=== PATIENT | female | born 1940 | race Caucasian/White ===

== ENCOUNTER 2018-05-05 17:52 | Emergency (ER) | payer MEDICAID ==
[~2018-05-05] VITALS: Ht 165.1 cm; Wt 59.0 kg
[~2018-05-05 17:52] MED LIST: Ginkgo Biloba PO; [UNRECOGNIZED DRUG - OTHER] PO
--- NOTE | 2018-05-05 19:27 | NUR ---
Pt brought in by family members with c/o right upper extremity pain that started 1.5 months ago. 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 Here for evaluation.
--- NOTE | 2018-05-05 20:55 | NUR ---
Patient discharged to home in stable conditon. Written and verbal after care instructions given. Patient verbalizes understanding of instructions. Pt ambulated out of ER in steady gait with family members. All belongings with pt. VSS. NAD noted.
[2018-05-05 20:56] VITALS: BP 134/69
== END 2018-05-05 20:57 | disposition home or self-care (01) ==
LOC: ER 17:54
DX: M19.011 Primary osteoarthritis, right shoulder (principal); Z90.49 Acquired absence of other specified parts of digestive tract
CPT/HCPCS: 73030; A4663

== ENCOUNTER 2021-04-23 19:48 | Inpatient (IN) | payer MEDICARE, OTHER ==
[~2021-04-23] VITALS: Ht 165.1 cm; Wt 63.5 kg
[~2021-04-23 19:48] MED LIST changes: +LEVOTHYROXINE
--- NOTE | 2021-04-23 20:05 | NUR ---
PT AMBULATED TO ER WITH STEADY GAIT C/O BONNER WITH NECK PAIN X 8 DAYS. A/O X3, NO SOB OR LABORED BREATHING, AFEBRILE. DENIES CP/PRESSURE. NO N/V/D. CLEAR SPEECH, COMPLETE SENTENCES, ABLE TO MOVE ALL EXTREMITIES WITHOUT DEFICIT, SMILE EQUAL, HAND RETAIL COVERAGE MERCHANDISER EQUAL.
--- NOTE | 2021-04-23 20:06 | NUR ---
PT YBARRA AT BEDSIDE, MSE IN PROGRESS.
[2021-04-23] MEDS ORDERED: IV NORMAL SALINE 1000 ML BAG IV ONE (20:15)
[2021-04-23] MEDS ORDERED: diphenhydrAMINE 50 MG/1 ML VIAL IV ONE (20:15)
[2021-04-23] MEDS ORDERED: METOCLOPRAMIDE HCL 10 MG/2 ML VIAL IV ONE (20:15)
[2021-04-23] MEDS ORDERED: ACETAMINOPHEN ES 500 MG TABLET PO ONE (20:15)
--- NOTE | 2021-04-23 20:40 | NUR ---
XRAY AT BEDSIDE.
[2021-04-23 20:43] LABS: HEMATOCRIT 32.8 % (31.2-41.9); MEAN CORPUSCULAR HEMOGLOBIN 32.4 uug (24.7-32.8); MEAN CORPUSCULAR VOLUME 94.3 fL (75.5-95.3); PLATELET COUNT (AUTO) 195 K/uL (179-408)
[2021-04-23] MEDS ORDERED: METOCLOPRAMIDE HCL 10 MG/2 ML VIAL ONE (20:43)
[2021-04-23] MEDS ORDERED: diphenhydrAMINE 50 MG/1 ML VIAL ONE (20:43)
[2021-04-23] MEDS ORDERED: ACETAMINOPHEN ES 500 MG TABLET ONE (20:43)
[2021-04-23 20:49] LABS: POTASSIUM 3.9 mmol/L (3.5-5.1)
[2021-04-23 20:53] LABS: BILIRUBIN,DIRECT 0.1 mg/dL (0.0-0.2); BILIRUBIN,TOTAL 0.6 mg/dL (0.2-1.0); MAGNESIUM 2.1 mg/dL (1.8-2.4); PHOSPHOROUS 3.9 mg/dL (2.5-4.9); TOTAL PROTEIN, SERUM 7.7 g/dL (6.4-8.2)
[2021-04-23] MEDS ORDERED: SWABABLE VALVE TRANSFER SET EA MC ONE (21:16)
[2021-04-23] MEDS ORDERED: IV NORMAL SALINE 250 ML IV ONE (21:17)
[2021-04-23] MEDS ORDERED: IOHEXOL 350 100 ML INFUS..BTL ONE (21:17)
[2021-04-23] MEDS ORDERED: predniSONE 20 MG TABLET PO ONE (22:30)
--- NOTE | 2021-04-23 22:53 | NUR ---
Patient is resting comfortably in bed with eyes closed. Noted to be using her phone.
[2021-04-23] MEDS ORDERED: predniSONE 20 MG TABLET ONE (22:54)
[2021-04-23] MEDS ORDERED: Z GUARD REMEDY PASTE 57 GM TUBE TOP PRN (23:45)
[2021-04-23] MEDS ORDERED: ONDANSETRON 4 MG/2 ML VIAL IV PRN (23:45)
[2021-04-23] MEDS ORDERED: MORPHINE SULFATE 2 MG/1 ML DISP.SYRIN IV PRN (23:45)
[2021-04-23] MEDS ORDERED: MAGNESIUM HYDROXIDE 30 ML LIQUID UDC PO PRN (23:45)
--- NOTE | 2021-04-24 01:42 | NUR ---
PT NOTED TO BE SLEEPING, BREATHING EVEN AND UNLABORED.
--- NOTE | 2021-04-24 03:39 | NUR ---
PT AMBULATED TO RESTROOM, DENIES AY PAIN/DISCOMFORT AT THIS TIME.
--- NOTE | 2021-04-24 05:23 | NUR ---
Patient is resting comfortably in bed with eyes closed.
--- NOTE | 2021-04-24 06:23 | NUR ---
pt ambulated to restroom, steady gait.
[2021-04-24 07:33] LABS: HEMATOCRIT 35.4 % (31.2-41.9); MEAN CORPUSCULAR HEMOGLOBIN 33.6 uug (24.7-32.8); MEAN CORPUSCULAR VOLUME 96.3 fL (75.5-95.3); PLATELET COUNT (AUTO) 209 K/uL (179-408)
[2021-04-24 08:07] LABS: CREATININE 0.9 mg/dL (0.6-1.3); MAGNESIUM 2.2 mg/dL (1.8-2.4); PHOSPHOROUS 3.6 mg/dL (2.5-4.9); POTASSIUM 3.7 mmol/L (3.5-5.1)
--- NOTE | 2021-04-24 08:18 | NUR ---
Transfered to 3rd floor via gurny with no distress noted.
--- NOTE | 2021-04-24 08:30 | NUR ---
Received patient from the ER , patient is alert and oriented x 4, denies of any pain, in room air saturating at 95%, patient is [place] speaking, IV site on the right AC G22. Seen by doctor Baer and ordered for Biopsy of the temporal artery on Tuesday , endorsed to the next shift. All needs met promptly. Call light within reach.
[2021-04-24] MEDS ORDERED: IBUPROFEN 800 MG TABLET PO PRN (12:45)
[2021-04-24] MEDS: IV 1/2NS 1000 ML 1,000 ML IV PRN (13:22)
[2021-04-24 16:20] VITALS: BP 93/55
[2021-04-24] MEDS: predniSONE 50 MG TABLET PO SCH (16:53)
[2021-04-24 20:51] VITALS: BP 119/66
[2021-04-25] MEDS: IV 1/2NS 1000 ML 1,000 ML IV PRN ×2 (01:50→14:57)
[2021-04-25 04:53] VITALS: BP 110/64
--- NOTE | 2021-04-25 06:45 | NUR ---
Patient asleep in bed. Easily arousable. Slept well throughout the night. Denies any pain or discomfort. Ivf infusing well. All needs attended. Will continue to monitor and assess.
[2021-04-25] MEDS: predniSONE 50 MG TABLET PO SCH (08:05)
[2021-04-25 11:13] VITALS: BP 127/81
[2021-04-25] MEDS: ACETAMINOPHEN 325 MG TABLET PO PRN (12:31)
[2021-04-25 15:05] VITALS: BP 125/61
[2021-04-25 20:50] VITALS: BP 115/57
[2021-04-26 04:00] VITALS: BP 114/56
[2021-04-26] MEDS: IV 1/2NS 1000 ML 1,000 ML IV PRN ×2 (05:41→20:19)
[2021-04-26] MEDS: predniSONE 50 MG TABLET PO SCH (08:08)
[2021-04-26 08:25] LABS: HEMATOCRIT 33.4 % (31.2-41.9); MEAN CORPUSCULAR HEMOGLOBIN 33.6 uug (24.7-32.8); MEAN CORPUSCULAR VOLUME 93.7 fL (75.5-95.3); PLATELET COUNT (AUTO) 216 K/uL (179-408)
[2021-04-26 08:34] VITALS: BP 104/58
[2021-04-26 08:46] LABS: CREATININE 0.8 mg/dL (0.6-1.3); POTASSIUM 3.5 mmol/L (3.5-5.1)
[2021-04-26 11:54] VITALS: BP 106/62
[2021-04-26 15:41] VITALS: BP 137/77
--- NOTE | 2021-04-26 18:21 | NUR ---
Patient resting in bed. AOx4. On room air. No signs of acute distress. IV access patent and intact, running 1/2NS at 75cc. Patient denies pain/ discomfort. Patient denies SOB/ . Needs anticipated and met. Frequent patient rounding for safety. Call light within reach. Will endorse to incoming shift for continuity of care.
--- NOTE | 2021-04-26 19:30 | NUR ---
RECEIVED PT AWAKE, ALERT AND ORIENTED X 4. PT IN NO ACUTE DISTRESS. IV INTACT. SAFETY AND COMFORT PROVIDED. WILL CONTINUE TO MONITOR.
[2021-04-26 20:00] VITALS: BP 128/80
[2021-04-26] MEDS: ACETAMINOPHEN 325 MG TABLET PO PRN (20:17)
--- NOTE | 2021-04-26 20:17 | NUR ---
PT GIVEN TYLENOL PRN 650 MG PRN AT 2017H PER PT REQUEST. TP STABLE.
[2021-04-27 04:00] VITALS: BP 114/60
--- NOTE | 2021-04-27 05:46 | NUR ---
PT SLEPT INTERMITTENTLY. PT IN NO ACUTE DISTRESS. PRESCRIBED MEDICATION GIVEN AND PT TOLERATED IT WELL. PT IV INTACT.SAFETY AND COMFORT PROVIDED. ALL NEEDS ARE MET. WILL ENDORSE TO INCOMING NURSE FOR CONTINUITY OF CARE.
[2021-04-27] MEDS ORDERED: IV NS 1000 ML 1,000 ML IV ONE (07:00)
--- NOTE | 2021-04-27 08:58 | NUR ---
alert and responsive no acute distress noted. no s/sx of pain or discomfort noted. iv hydration ongoing. bed at lowest alarm on siderails up x2. call light in reach.
[2021-04-27] MEDS: predniSONE 50 MG TABLET PO SCH (09:00)
--- NOTE | 2021-04-27 09:49 | NUR ---
spoke with gary at surgery pt will be p/u 4pm for 4:30 pm surgery. continue npo until further ordered.
[2021-04-27 11:24] VITALS: BP 132/74
--- NOTE | 2021-04-27 12:16 | NUR ---
received call from surgery, pt will be p/u 1:45. pt and andie perez made aware.
--- NOTE | 2021-04-27 14:03 | NUR ---
picked up by 2 RN for procedure. family went with the patient.
[2021-04-27] MEDS ORDERED: LIDOCAINE 1%-EPI 1:100,000 20 ML VIAL ONE (14:20)
[2021-04-27] MEDS ORDERED: FENTANYL CITRATE 100 MCG/2 ML AMPUL ONE (14:26)
[2021-04-27] MEDS ORDERED: PROPOFOL 200 MG/20 ML BOTTLE IV ONE (16:21)
[2021-04-27] MEDS ORDERED: CEFAZOLIN 1 G VIAL IM ONE (16:21)
[2021-04-27] MEDS ORDERED: LIDOCAINE-MPF 2% 5 ML VIAL IJ ONE (16:21)
--- NOTE | 2021-04-27 17:00 | NUR ---
came back from surgery awake alert oriented x4. accompanied by family. no respiratory distress. bilateral temporal surgical site with dermabond per CHRISTIAN Corbett no dressing needed leave open to air. no redness, swelling or drainage noted. pt denies pain. vs 115/60 hr 68 t98.2 [id number] spo2 96% on room air. all orders are noted. dr archibald made aware with order that may start cardiac diet noted and carried. will cont to monitor.
--- NOTE | 2021-04-27 19:00 | NUR ---
RECD PT IN BED, ALERT AND ORIENTED,NO ACUTE DISTRESS NOTED,FAMILY AT BEDSIDE. NEEDS ATTENDED TO,[place]ISIONSON TEMPORAL REGIONS LEFT OPEN TO AIR,.NO SIGNS OF BLEEDING NOTED.
[2021-04-27] MEDS ORDERED: IV 1/2NS 1000 ML 1,000 ML IV PRN (20:00)
[2021-04-27 20:03] VITALS: BP 125/61
--- NOTE | 2021-04-27 20:40 | NUR ---
COMPLAINED OF HEADACHE 02/03, MEDICATED WITH MORPHINE SULFATE 2 MG ORDERED VIA IV, WITH GOOD RELIEF. RESTED FAIRLY WELL.
--- NOTE | 2021-04-28 02:24 | NUR ---
UP TO BR , VOIDED FREELY WELL. KEPT DRY AND CLEAN. .
[2021-04-28 04:52] VITALS: BP 105/55
--- NOTE | 2021-04-28 06:42 | NUR ---
HAD AQUIET NOC,UNEVENTFUL NITE.ENDORSED TO AM SHIFT.
[2021-04-28 07:29] LABS: HEMATOCRIT 35.5 % (31.2-41.9); MEAN CORPUSCULAR VOLUME 94.5 fL (75.5-95.3); PLATELET COUNT (AUTO) 251 K/uL (179-408)
[2021-04-28 07:43] LABS: CREATININE 0.7 mg/dL (0.6-1.3); POTASSIUM 3.5 mmol/L (3.5-5.1)
[2021-04-28] MEDS: predniSONE 50 MG TABLET PO SCH (08:10)
--- NOTE | 2021-04-28 10:00 | NUR ---
received awake in bed. no acute distress. assisted to the bathroom. no dizziness. s/p bilateral temporal biopsy. no bleeding/drainage or swelling noted or surgical sites. bed at lowest and locked. siderails up x2. comfortable. call light in reach.
[2021-04-28 10:05] LABS: THYROID STIMULATING HORMONE 3.817 mIU/mL (0.358-3.740)
[2021-04-28 11:27] VITALS: BP 103/58
[2021-04-28 15:19] VITALS: BP 113/57
[2021-04-28] MEDS ORDERED: PRED20TA PO (17:54)
[2021-04-28] MEDS ORDERED: ESOM20CA PO (17:54)
--- NOTE | 2021-04-28 18:44 | NUR ---
discharged to home. no acute distress. follow up instructions relayed to patient and her son lillie to f/up with pcp and neuro and to cont medications as ordered. they both verbalized understanding. bilateral temporal incisions intact no s/sx of infection or drainage. denies pain. pt left via private car accompanied by son in stable condition.
== END 2021-04-28 18:50 | disposition home or self-care (01) | DRG 42 ==
LOC: ER 19:50 → MEDSURG3 04-24 08:06
PROVIDERS: ADMIT Internal Medicine; ATTEND Internal Medicine
PROC: 03BT0ZX Excision of Left Temporal Artery, Open Approach, Diagnostic (ICD-10-PCS; principal; 2021-04-27)
PROC: 03BS0ZX Excision of Right Temporal Artery, Open Approach, Diagnostic (ICD-10-PCS; 2021-04-27)
DX: G43.909 Migraine, unspecified, not intractable, without status migrainosus (principal); M31.6 Other giant cell arteritis; E78.5 Hyperlipidemia, unspecified; E89.0 Postprocedural hypothyroidism; I73.9 Peripheral vascular disease, unspecified; Z20.822 Contact with and (suspected) exposure to COVID-19; R73.03 Prediabetes
CPT/HCPCS: 36415; 70030-TC; 70496; 71046; 83735; 84100; 84443; 85025; 85651; 85730; 86140; 88313-TC; 93005; 97161; A4217; A4663; A9150; G0378; J0690; J1200; J2270; J2765; J3010; J3490; J7030; J7050; J7512; Q9967

== ENCOUNTER 2021-11-24 12:10 | Emergency (ER) | payer MEDICARE, OTHER ==
[~2021-11-24] VITALS: Ht 165.1 cm; Wt 63.5 kg
[~2021-11-24 12:10] MED LIST changes: +ESOM20CA PO; +PRED20TA PO
[2021-11-24] MEDS ORDERED: KETOROLAC TROMETHAMINE 15 MG INJ ONE (12:29)
[2021-11-24] MEDS ORDERED: ACETAMINOPHEN 325 MG TABLET ONE (12:29)
[2021-11-24] MEDS ORDERED: ACETAMINOPHEN 325 MG TABLET PO ONE (12:30)
[2021-11-24] MEDS ORDERED: KETOROLAC TROMETHAMINE 15 MG INJ IVP ONE (12:30)
[2021-11-24] MEDS ORDERED: IV NORMAL SALINE 1000 ML BAG IV ONE (12:30)
[2021-11-24 12:41] LABS: *BILIRUBIN,URIN NEGATIVE (NEGATIVE); *BLOOD, URINE 2+ (NEGATIVE); *CLARITY,URINE SLIGHTLY CLOUDY (CLEAR); *COLOR,URINE YELLOW (YELLOW); *KETONES,URINE NEGATIVE (NEGATIVE); *UROBILINOGEN,URINE 0.2 E.U./dl (NORMAL); LEUKOCYTE ESTERASE ,URINE 2+ (NEGATIVE); NITRITE, URINE POSITIVE (NEGATIVE); UGLUCOSE NEGATIVE (NEGATIVE)
[2021-11-24 12:42] LABS: HEMATOCRIT 37.9 % (31.2-41.9); MEAN CORPUSCULAR HEMOGLOBIN 32.2 uug (24.7-32.8); MEAN CORPUSCULAR VOLUME 93.2 fL (75.5-95.3); PLATELET COUNT (AUTO) 216 K/uL (179-408)
[2021-11-24 12:53] LABS: BILIRUBIN,DIRECT 0.2 mg/dL (0.0-0.2); CREATININE 0.7 mg/dL (0.6-1.3); POTASSIUM 3.7 mmol/L (3.5-5.1); TOTAL PROTEIN, SERUM 7.6 g/dL (6.4-8.2)
[2021-11-24] MEDS ORDERED: CEFTRIAXONE 1 G in IV DEXTROSE 5% 50 ML IV ONE (13:15)
[2021-11-24] MEDS ORDERED: NAPR-1009 PO (13:17)
[2021-11-24] MEDS ORDERED: CEPH500C2 PO (13:17)
[2021-11-24] MEDS ORDERED: CEFTRIAXONE /D5W 50ML IVPB **ER PYXIS IV ONE (13:17)
--- NOTE | 2021-11-24 13:33 | NUR ---
Patient discharged to home in stable condition. Written and verbal after care instructions given. Patient verbalizes understanding of instructions. Stressed follow up or return to ER for worsening s/s
[2021-11-24 13:35] VITALS: BP 119/71
[2021-11-24 16:14] LABS: BACTERIA,URINE MANY /HPF (NONE SEEN); SQUAMOUS EPITHELIAL CELL,UR FEW /HPF (NONE SEEN); WBC,URINE 20-50 /HPF (0-3)
== END 2021-11-24 13:40 | disposition home or self-care (01) ==
LOC: ER 12:10
DX: M54.50 Low back pain, unspecified (principal); N39.0 Urinary tract infection, site not specified; N28.1 Cyst of kidney, acquired; K57.90 Diverticulosis of intestine, part unspecified, without perforation or abscess without bleeding; R31.9 Hematuria, unspecified; Z90.49 Acquired absence of other specified parts of digestive tract; E03.9 Hypothyroidism, unspecified; E78.5 Hyperlipidemia, unspecified; M17.11 Unilateral primary osteoarthritis, right knee
CPT/HCPCS: 36415; 74176; 80048; 80076; 81001; 83690; 85025; 87086; 96361; 96365; 96375; 99284; J0696; J1885; J7040; 87077; A4663

== ENCOUNTER 2024-04-05 21:50 | Emergency (ER) | payer MEDICARE, OTHER ==
[~2024-04-05] VITALS: Ht 157.5 cm; Wt 62.6 kg
[~2024-04-05 21:50] MED LIST changes: +CEPH500C2 PO; +NAPR-1009 PO
[2024-04-05 22:17] VITALS: O2SAT 98
[2024-04-06] MEDS ORDERED: HYDROCODONE/APAP 5-325MG TABLET ONE (01:07)
[2024-04-06] MEDS: HYDROCODONE/APAP 5-325MG TABLET PO ONE (01:15)
[2024-04-06] MEDS ORDERED: MELO-107 PO (01:15)
== END 2024-04-06 01:30 | disposition home or self-care (01) ==
LOC: ER 21:54
DX: M54.16 Radiculopathy, lumbar region (principal); E03.9 Hypothyroidism, unspecified; E78.5 Hyperlipidemia, unspecified; M19.90 Unspecified osteoarthritis, unspecified site; Z79.52 Long term (current) use of systemic steroids; Z79.1 Long term (current) use of non-steroidal anti-inflammatories (NSAID); Z90.49 Acquired absence of other specified parts of digestive tract; Z98.890 Other specified postprocedural states
CPT/HCPCS: 72170; 73502; A4606; A4663

== ENCOUNTER 2024-05-15 15:39 | Inpatient (IN) | payer MEDICARE, OTHER ==
[~2024-05-15] VITALS: Ht 154.9 cm; Wt 59.0 kg
[~2024-05-15 15:39] MED LIST changes: +MELO-107 PO
[2024-05-15 16:02] LABS: BASOPHILS % (AUTO) 0.3 % (0.0-2.0); HEMATOCRIT 38.5 % (31.2-41.9); HEMOGLOBIN 12.8 g/dL (10.9-14.3); LYMPHOCYTES # (AUTO) 1.4 K/uL (0.8-4.8); LYMPHOCYTES % (AUTO) 10.9 % (20.5-51.5); MEAN CORPUSCULAR HEMOGLOBIN 31.3 uug (24.7-32.8); MEAN CORPUSCULAR HGB CONC 33 g/dL (32.3-35.6); MEAN CORPUSCULAR VOLUME 93.8 fL (75.5-95.3); MONOCYTES # (AUTO) 0.9 K/uL (0.1-1.30); MONOCYTES % (AUTO) 6.8 % (0.0-11.0); NEUTROPHILS # (AUTO) 10.5 K/uL (1.8-8.9); PLATELET COUNT (AUTO) 193 K/uL (179-408); RED CELL DISTRIBUTION WIDTH 13.4 % (12.3-17.7); WHITE BLOOD COUNT (AUTO) 12.9 K/uL (3.8-11.8)
[2024-05-15 16:12] LABS: DIFFERENTIAL COMMENT 1
[2024-05-15 16:16] LABS: CALCIUM 8.7 mg/dL (8.5-10.1); CARBON DIOXIDE 25 mmol/L (21-32); CHLORIDE 97 mmol/L (98-107); GLUCOSE 132 mg/dL (74-106); POTASSIUM 3.7 mmol/L (3.5-5.1); SODIUM SERUM 134 mmol/L (136-145); UREA NITROGEN, BLOOD 14 mg/dL (7-18)
[2024-05-15 16:22] LABS: ALANINE AMINOTRANSFERASE 25 U/L (14-59); ALBUMIN 3.3 g/dL (3.4-5.0); ALKALINE PHOSPHATASE 70 U/L (50-136); ASPARTATE AMINOTRANSFERASE 30 U/L (15-37); BILIRUBIN,DIRECT 0.3 mg/dL (0.0-0.2); BILIRUBIN,TOTAL 1.4 mg/dL (0.2-1.0); LIPASE 19 U/L (16-77); TOTAL PROTEIN, SERUM 8.1 g/dL (6.4-8.2)
[2024-05-15] MEDS ORDERED: CEFTRIAXONE /D5W 50ML IVPB **ER PYXIS IV ONE (17:09)
[2024-05-15] MEDS: IV NORMAL SALINE 1000 ML BAG IV ONE (17:09)
[2024-05-15] MEDS: CEFTRIAXONE 1 G in IV DEXTROSE 5% 50 ML IV ONE (17:10)
[2024-05-15 17:11] LABS: *BILIRUBIN,URIN NEGATIVE (NEGATIVE); *BLOOD, URINE 3+ (NEGATIVE); *CLARITY,URINE CLEAR (CLEAR); *COLOR,URINE YELLOW (YELLOW); *KETONES,URINE 2+ (NEGATIVE); *PROTEIN,URINE 2+ (NEGATIVE); *UROBILINOGEN,URINE 0.2 E.U./dl (NORMAL); LEUKOCYTE ESTERASE ,URINE 3+ (NEGATIVE); NITRITE, URINE NEGATIVE (NEGATIVE); UGLUCOSE NEGATIVE (NEGATIVE)
[2024-05-15] MEDS: ENOXAPARIN SODIUM 60 MG/0.6 ML DISP.SYRIN SQ ONE (18:01)
[2024-05-15] MEDS: ASPIRIN 81 MG TAB.CHEW PO ONE (18:01)
[2024-05-15] MEDS ORDERED: HYDROCODONE/APAP 5-325MG TABLET PO PRN (19:45)
[2024-05-15] MEDS ORDERED: ONDANSETRON 4 MG/2 ML VIAL IV PRN (19:45)
[2024-05-15] MEDS ORDERED: MAGNESIUM HYDROXIDE 30 ML LIQUID UDC PO PRN (19:45)
[2024-05-15] MEDS ORDERED: TEMAZEPAM 7.5 MG CAPSULE PO PRN (20:15)
[2024-05-15 21:20] VITALS: BP 119/57; TEMP 98.5; O2SAT 95
[2024-05-15] MEDS: ATORVASTATIN 40 MG TABLET PO SCH (22:02)
[2024-05-15] MEDS ORDERED: MEROPENEM 1GM/NS 100ML IVPB **ER PYXIS ONLY IV ONE (22:14)
[2024-05-15] MEDS ORDERED: IV 1/2 NS + KCL 20 MEQ BAG 1,000 ML ONE (22:25)
[2024-05-15] MEDS: MEROPENEM 1 G in IV NORMAL SALINE 100 ML IV SCH (23:52)
[2024-05-16] VITALS: BP 126/56; TEMP 99.5; O2SAT 94
[2024-05-16] MEDS: POTASSIUM CHLORIDE 20 MEQ in IV 1/2NS 1000 ML 1,000 ML IV PRN
[2024-05-16 04:00] VITALS: BP 114/55; TEMP 98.5; O2SAT 94
[2024-05-16] MEDS: PANTOPRAZOLE SODIUM 40 MG TABLET.DR PO SCH (06:33)
[2024-05-16 07:41] VITALS: BP 117/58; TEMP 99.5; O2SAT 94
[2024-05-16 07:50] LABS: BASOPHILS # (AUTO) 0.1 K/UL (0.0-0.2); BASOPHILS % (AUTO) 0.8 % (0.0-2.0); EOSINOPHILS % (AUTO) 0.1 % (0.0-7.0); HEMATOCRIT 31.1 % (31.2-41.9); HEMOGLOBIN 10.9 g/dL (10.9-14.3); LYMPHOCYTES # (AUTO) 1.7 K/uL (0.8-4.8); MEAN CORPUSCULAR HEMOGLOBIN 32.8 uug (24.7-32.8); MEAN CORPUSCULAR HGB CONC 35 g/dL (32.3-35.6); MEAN CORPUSCULAR VOLUME 93.6 fL (75.5-95.3); MONOCYTES # (AUTO) 0.9 K/uL (0.1-1.30); MONOCYTES % (AUTO) 9.9 % (0.0-11.0); NEUTROPHILS # (AUTO) 6.7 K/uL (1.8-8.9); NEUTROPHILS % (AUTO) 71.2 % (38.5-71.5); PLATELET COUNT (AUTO) 150 K/uL (179-408); RED BLOOD CELL COUNT(AUTO) 3.32 MIL/uL (3.63-4.92); RED CELL DISTRIBUTION WIDTH 13.1 % (12.3-17.7); WHITE BLOOD COUNT (AUTO) 9.4 K/uL (3.8-11.8)
[2024-05-16 07:59] LABS: DIFFERENTIAL COMMENT 1
[2024-05-16 08:26] LABS: ALANINE AMINOTRANSFERASE 19 U/L (14-59); ALBUMIN 2.4 g/dL (3.4-5.0); ALKALINE PHOSPHATASE 59 U/L (50-136); ASPARTATE AMINOTRANSFERASE 26 U/L (15-37); BILIRUBIN,TOTAL 1.2 mg/dL (0.2-1.0); CALCIUM 7.5 mg/dL (8.5-10.1); CARBON DIOXIDE 23 mmol/L (21-32); CHLORIDE 103 mmol/L (98-107); CHOLESTEROL 106 mg/dL (<200); CREATININE 0.9 mg/dL (0.6-1.3); GLUCOSE 104 mg/dL (74-106); HDL CHOLESTEROL 43 mg/dL (40-60); MAGNESIUM 1.9 mg/dL (1.8-2.4); PHOSPHOROUS 2.4 mg/dL (2.5-4.9); POTASSIUM 3.3 mmol/L (3.5-5.1); SODIUM SERUM 134 mmol/L (136-145); TOTAL PROTEIN, SERUM 6.3 g/dL (6.4-8.2); TRIGLYCERIDES 58 MG/DL (30-150); UREA NITROGEN, BLOOD 10 mg/dL (7-18)
[2024-05-16] MEDS: ASPIRIN EC 81 MG TABLET.DR PO SCH (08:52)
[2024-05-16] MEDS: ENOXAPARIN SODIUM 60 MG/0.6 ML DISP.SYRIN SQ SCH (08:53)
[2024-05-16] MEDS: ACETAMINOPHEN 325 MG TABLET PO PRN (08:56)
[2024-05-16 09:16] LABS: THYROID STIMULATING HORMONE 1.332 mIU/mL (0.358-3.740)
[2024-05-16] MEDS: POTASSIUM CHLORIDE 20 MEQ POWDER PACKET PO ONE (09:34)
[2024-05-16] MEDS ORDERED: ASPI81TA31 PO (09:59)
[2024-05-16 11:47] VITALS: BP 107/67; TEMP 98.4; O2SAT 94
[2024-05-16] MEDS: NEUTRA PHOS PACKET PO ONE (16:29)
[2024-05-16 16:36] VITALS: BP 129/65; TEMP 97.6; O2SAT 94
[2024-05-16] MEDS: MEROPENEM 1 G in IV NORMAL SALINE 100 ML IV SCH (17:03)
[2024-05-16 19:40] VITALS: BP 134/66; TEMP 101.1; O2SAT 93
[2024-05-16] MEDS ORDERED: CEFTRIAXONE /D5W 50ML IVPB **ER PYXIS IV ONE (21:30)
[2024-05-16] MEDS: CEFTRIAXONE 1 G in IV DEXTROSE 5% 50 ML IV SCH (22:17)
[2024-05-17 00:02] VITALS: BP 111/65; TEMP 98.2; O2SAT 96
[2024-05-17 04:22] VITALS: BP 120/74; TEMP 97.4; O2SAT 93
[2024-05-17 06:49] LABS: CALCIUM 8.2 mg/dL (8.5-10.1); CARBON DIOXIDE 27 mmol/L (21-32); CHLORIDE 106 mmol/L (98-107); CREATININE 0.8 mg/dL (0.6-1.3); GLUCOSE 108 mg/dL (74-106); PHOSPHOROUS 2.8 mg/dL (2.5-4.9); POTASSIUM 4.1 mmol/L (3.5-5.1); SODIUM SERUM 139 mmol/L (136-145); UREA NITROGEN, BLOOD 6 mg/dL (7-18)
[2024-05-17 07:42] VITALS: BP 136/64; TEMP 98.6; O2SAT 94
[2024-05-17 11:56] VITALS: BP 133/71; TEMP 97.9; O2SAT 95
[2024-05-17 15:43] VITALS: BP 137/75; TEMP 98.5; O2SAT 97
[2024-05-17 20:08] VITALS: BP 118/70; TEMP 98.3; O2SAT 92
[2024-05-18 05:35] VITALS: BP 134/76; TEMP 98.2; O2SAT 95
[2024-05-18 07:39] LABS: BASOPHILS % (AUTO) 1.1 % (0.0-2.0); EOSINOPHILS # (AUTO) 0.1 K/uL (0.0-0.7); EOSINOPHILS % (AUTO) 2.7 % (0.0-7.0); HEMATOCRIT 33.3 % (31.2-41.9); HEMOGLOBIN 11.6 g/dL (10.9-14.3); LYMPHOCYTES # (AUTO) 1.9 K/uL (0.8-4.8); LYMPHOCYTES % (AUTO) 41.3 % (20.5-51.5); MEAN CORPUSCULAR HEMOGLOBIN 32.1 uug (24.7-32.8); MEAN CORPUSCULAR HGB CONC 35 g/dL (32.3-35.6); MEAN CORPUSCULAR VOLUME 92.4 fL (75.5-95.3); MONOCYTES # (AUTO) 0.6 K/uL (0.1-1.30); MONOCYTES % (AUTO) 13.2 % (0.0-11.0); NEUTROPHILS # (AUTO) 1.9 K/uL (1.8-8.9); NEUTROPHILS % (AUTO) 41.7 % (38.5-71.5); PLATELET COUNT (AUTO) 173 K/uL (179-408); RED CELL DISTRIBUTION WIDTH 12.8 % (12.3-17.7); WHITE BLOOD COUNT (AUTO) 4.5 K/uL (3.8-11.8)
[2024-05-18 08:00] VITALS: BP 137/78; TEMP 98.4; O2SAT 93
[2024-05-18 08:01] LABS: ALANINE AMINOTRANSFERASE 24 U/L (14-59); ALBUMIN 2.4 g/dL (3.4-5.0); ALKALINE PHOSPHATASE 60 U/L (50-136); ASPARTATE AMINOTRANSFERASE 21 U/L (15-37); BILIRUBIN,TOTAL 0.3 mg/dL (0.2-1.0); CALCIUM 8.2 mg/dL (8.5-10.1); CARBON DIOXIDE 28 mmol/L (21-32); CHLORIDE 104 mmol/L (98-107); CREATININE 0.7 mg/dL (0.6-1.3); GLUCOSE 102 mg/dL (74-106); MAGNESIUM 1.9 mg/dL (1.8-2.4); PHOSPHOROUS 3.4 mg/dL (2.5-4.9); POTASSIUM 3.7 mmol/L (3.5-5.1); SODIUM SERUM 136 mmol/L (136-145); TOTAL PROTEIN, SERUM 6.5 g/dL (6.4-8.2); UREA NITROGEN, BLOOD 5 mg/dL (7-18)
[2024-05-18 08:12] LABS: DIFFERENTIAL COMMENT 1
[2024-05-18 12:00] VITALS: BP 125/68; TEMP 98.1; O2SAT 95
[2024-05-18 16:00] VITALS: BP 123/69; TEMP 98; O2SAT 98
[2024-05-18] MEDS: ENSURE ENLIVE (VAN) 240 ML LIQUID PO SCH (17:30)
[2024-05-18 19:59] VITALS: BP 157/79; TEMP 98.7; O2SAT 94
[2024-05-19 04:41] VITALS: BP 115/73; TEMP 97.8; O2SAT 95
[2024-05-19 06:10] VITALS: BP 115/73; TEMP 97.8; O2SAT 95
[2024-05-19 11:34] VITALS: BP 112/62; TEMP 97.9; O2SAT 95
[2024-05-19] MEDS ORDERED: SULF1TAB48 PO (14:08)
[2024-05-19] MEDS ORDERED: ATOR10TA PO (14:08)
== END 2024-05-19 16:00 | disposition home or self-care (01) | DRG 871 ==
LOC: ER 15:39 → TELE3 20:18 → MEDSURG3 05-17 11:00
PROVIDERS: ADMIT Internal Medicine; ATTEND Internal Medicine
DX: A41.51 Sepsis due to Escherichia coli [E. coli] (principal); G92.8 Other toxic encephalopathy; I21.A1 Myocardial infarction type 2; J18.9 Pneumonia, unspecified organism; N39.0 Urinary tract infection, site not specified; I70.0 Atherosclerosis of aorta; E78.5 Hyperlipidemia, unspecified; E03.9 Hypothyroidism, unspecified; G43.909 Migraine, unspecified, not intractable, without status migrainosus; R42 Dizziness and giddiness; M15.9 Polyosteoarthritis, unspecified; E80.6 Other disorders of bilirubin metabolism; R73.03 Prediabetes; Z79.82 Long term (current) use of aspirin; E88.09 Other disorders of plasma-protein metabolism, not elsewhere classified; R65.20 Severe sepsis without septic shock
CPT/HCPCS: 36415; 71045; 83605; 83690; 83735; 84100; 84443; 84484; 85025; 85730; 87040; 87077; 93307; A4663; G0378; J0696; J1650; J2185; J3480; J3490; J7040

== ENCOUNTER 2024-10-08 20:42 | Emergency (ER) | payer MEDICARE, OTHER ==
[~2024-10-08] VITALS: Ht 165.1 cm; Wt 61.7 kg
[~2024-10-08 20:42] MED LIST changes: +ASPI81TA31 PO; +ATOR10TA PO; -CEPH500C2 PO; -ESOM20CA PO; -Ginkgo Biloba PO; -LEVOTHYROXINE; -MELO-107 PO; -NAPR-1009 PO; -PRED20TA PO; +SULF1TAB48 PO; -[UNRECOGNIZED DRUG - OTHER] PO
[2024-10-09 00:07] LABS: *BILIRUBIN,URIN NEGATIVE (NEGATIVE); *BLOOD, URINE 2+ (NEGATIVE); *CLARITY,URINE CLEAR (CLEAR); *KETONES,URINE NEGATIVE (NEGATIVE); *PROTEIN,URINE NEGATIVE (NEGATIVE); *UROBILINOGEN,URINE 0.2 E.U./dl (NORMAL); LEUKOCYTE ESTERASE ,URINE NEGATIVE (NEGATIVE); NITRITE, URINE NEGATIVE (NEGATIVE); UGLUCOSE NEGATIVE (NEGATIVE)
[2024-10-09 00:11] LABS: *COLOR,URINE LIGHT YELLOW (YELLOW)
[2024-10-09 00:20] LABS: BASOPHILS # (AUTO) 0.1 K/UL (0.0-0.2); BASOPHILS % (AUTO) 2.2 % (0.0-2.0); EOSINOPHILS # (AUTO) 0.3 K/uL (0.0-0.7); EOSINOPHILS % (AUTO) 5.6 % (0.0-7.0); HEMATOCRIT 34.8 % (31.2-41.9); LYMPHOCYTES % (AUTO) 49.2 % (20.5-51.5); MEAN CORPUSCULAR HEMOGLOBIN 32.5 uug (24.7-32.8); MEAN CORPUSCULAR HGB CONC 35 g/dL (32.3-35.6); MEAN CORPUSCULAR VOLUME 93.9 fL (75.5-95.3); MONOCYTES # (AUTO) 0.9 K/uL (0.1-1.30); MONOCYTES % (AUTO) 15.6 % (0.0-11.0); NEUTROPHILS # (AUTO) 1.6 K/uL (1.8-8.9); NEUTROPHILS % (AUTO) 27.4 % (38.5-71.5); PLATELET COUNT (AUTO) 191 K/uL (179-408); RED CELL DISTRIBUTION WIDTH 13.3 % (12.3-17.7)
[2024-10-09 00:21] LABS: DIFFERENTIAL COMMENT 1
[2024-10-09 00:47] LABS: CALCIUM 8.3 mg/dL (8.5-10.1); CARBON DIOXIDE 28 mmol/L (21-32); CHLORIDE 102 mmol/L (98-107); GLUCOSE 101 mg/dL (74-106); POTASSIUM 3.9 mmol/L (3.5-5.1); SODIUM SERUM 137 mmol/L (136-145); UREA NITROGEN, BLOOD 14 mg/dL (7-18)
[2024-10-09 00:59] LABS: ALANINE AMINOTRANSFERASE 21 U/L (14-59); ALBUMIN 3.4 g/dL (3.4-5.0); ALKALINE PHOSPHATASE 52 U/L (50-136); ASPARTATE AMINOTRANSFERASE 23 U/L (15-37); BILIRUBIN,DIRECT 0.1 mg/dL (0.0-0.2); BILIRUBIN,TOTAL 0.5 mg/dL (0.2-1.0); LIPASE 31 U/L (16-77); TOTAL PROTEIN, SERUM 7.6 g/dL (6.4-8.2)
[2024-10-09 01:01] LABS: BACTERIA,URINE FEW /HPF (NONE SEEN); SQUAMOUS EPITHELIAL CELL,UR FEW /HPF (NONE SEEN); WBC,URINE 0-3 /HPF (0-3)
[2024-10-09 01:53] LABS: EOSINOPHILS % (MANUAL) 2 % (0-8); LYMPHOCYTES % (MANUAL) 54 % (20-40); MONOCYTES % (MANUAL) 13 % (2-10); NEUTROPHILS % (MANUAL) 31 % (42-75); PLATELET ESTIMATE ADEQUATE
[2024-10-09] MEDS ORDERED: METOCLOPRAMIDE HCL 10 MG/2 ML VIAL ONE (02:36)
[2024-10-09] MEDS ORDERED: SUCR1ORA4 PO (02:37)
[2024-10-09] MEDS ORDERED: KETOROLAC TROMETHAMINE 15 MG INJ ONE (02:37)
[2024-10-09] MEDS ORDERED: FAMO40TA7 PO (02:37)
[2024-10-09] MEDS: METOCLOPRAMIDE HCL 10 MG/2 ML VIAL IV ONE (02:53)
[2024-10-09] MEDS: KETOROLAC TROMETHAMINE 15 MG INJ IVP ONE (02:53)
[2024-10-09 02:55] VITALS: BP 130/70; TEMP 98.1; O2SAT 99
== END 2024-10-09 02:56 | disposition home or self-care (01) ==
LOC: ER 20:47
DX: R10.32 Left lower quadrant pain (principal); R10.31 Right lower quadrant pain; E03.9 Hypothyroidism, unspecified; E78.5 Hyperlipidemia, unspecified; M19.90 Unspecified osteoarthritis, unspecified site; Z79.82 Long term (current) use of aspirin; Z87.440 Personal history of urinary (tract) infections; Z90.49 Acquired absence of other specified parts of digestive tract; Z90.710 Acquired absence of both cervix and uterus; Z98.890 Other specified postprocedural states
CPT/HCPCS: 36415; 71045; 83690; 84484; 85025; 85651; 85730; 87086; A4606; A4663; J1885; J2765

== ENCOUNTER 2025-04-26 20:39 | Emergency (ER) | payer MEDICARE, OTHER ==
[~2025-04-26] VITALS: Ht 160 cm; Wt 61.7 kg
[2025-04-26 20:39] VITALS: BP 137/79
[~2025-04-26 20:39] MED LIST changes: +FAMO40TA7 PO; +SUCR1ORA4 PO
[2025-04-26 21:41] LABS: PLATELET COUNT (AUTO) 200 K/uL (179-408); RED BLOOD CELL COUNT(AUTO) 3.97 MIL/uL (3.63-4.92); RED CELL DISTRIBUTION WIDTH 13.5 % (12.3-17.7); WHITE BLOOD COUNT (AUTO) 5.2 K/uL (3.8-11.8)
[2025-04-26 21:43] LABS: CREATININE 0.8 mg/dL (0.6-1.3); SODIUM SERUM 138 mmol/L (136-145); UREA NITROGEN, BLOOD 10 mg/dL (7-18)
[2025-04-26 21:48] LABS: ASPARTATE AMINOTRANSFERASE 20 U/L (15-37); TOTAL PROTEIN, SERUM 7.9 g/dL (6.4-8.2)
[2025-04-26] MEDS ORDERED: ACETAMINOPHEN 500 MG TABLET ONE (22:07)
[2025-04-26] MEDS: IV NORMAL SALINE 500 ML BAG IV ONE (22:15)
[2025-04-26] MEDS: ACETAMINOPHEN 500 MG TABLET PO ONE (22:15)
[2025-04-26 22:28] LABS: *BILIRUBIN,URIN NEGATIVE (NEGATIVE); *BLOOD, URINE 2+ (NEGATIVE); *COLOR,URINE YELLOW (YELLOW); *KETONES,URINE NEGATIVE (NEGATIVE); *PROTEIN,URINE NEGATIVE (NEGATIVE); *UROBILINOGEN,URINE 0.2 E.U./dl (NORMAL); LEUKOCYTE ESTERASE ,URINE 1+ (NEGATIVE); NITRITE, URINE NEGATIVE (NEGATIVE); UGLUCOSE NEGATIVE (NEGATIVE)
[2025-04-26 22:29] LABS: *CLARITY,URINE HAZY (CLEAR)
[2025-04-26 23:02] LABS: SQUAMOUS EPITHELIAL CELL,UR FEW /HPF (NONE SEEN)
[2025-04-26] MEDS ORDERED: CEFTRIAXONE /D5W 50ML IVPB **ER PYXIS IV ONE (23:13)
[2025-04-26] MEDS: CEFTRIAXONE 500 MG VIAL IV ONE (23:16)
[2025-04-26] MEDS ORDERED: CEFD300C3 PO (23:30)
[2025-04-27 02:18] VITALS: BP 130/72; O2SAT 98
== END 2025-04-27 01:08 | disposition home or self-care (01) ==
LOC: ER 20:39
DX: N39.0 Urinary tract infection, site not specified (principal); I51.9 Heart disease, unspecified; E78.5 Hyperlipidemia, unspecified; K21.9 Gastro-esophageal reflux disease without esophagitis; M19.90 Unspecified osteoarthritis, unspecified site; Z79.82 Long term (current) use of aspirin; Z87.440 Personal history of urinary (tract) infections; Z88.7 Allergy status to serum and vaccine; Z90.49 Acquired absence of other specified parts of digestive tract; Z98.890 Other specified postprocedural states; Z79.899 Other long term (current) drug therapy; Z86.2 Personal history of diseases of the blood and blood-forming organs and certain disorders involving the immune mechanism
CPT/HCPCS: 99284; 96365; 87804 ×2; 80076; 80048; 81001; 85025; 84145; 85730; 87086; 36415; 93005; 83605; J0696; J7040 ×2; A4606; A4663; A9150

== ENCOUNTER 2025-05-16 10:15 | Emergency (ER) | payer MEDICARE, OTHER ==
[~2025-05-16] VITALS: Ht 152.4 cm; Wt 61.7 kg
[~2025-05-16 10:15] MED LIST changes: +CEFD300C3 PO
[2025-05-16] MEDS ORDERED: ASPIRIN 81 MG TAB.CHEW ONE (11:19)
[2025-05-16] MEDS: ASPIRIN 81 MG TAB.CHEW PO ONE (11:23)
[2025-05-16 11:27] LABS: PLATELET COUNT (AUTO) 206 K/uL (179-408); RED BLOOD CELL COUNT(AUTO) 4.08 MIL/uL (3.63-4.92); RED CELL DISTRIBUTION WIDTH 13.4 % (12.3-17.7); WHITE BLOOD COUNT (AUTO) 5.4 K/uL (3.8-11.8)
[2025-05-16 11:34] LABS: *BILIRUBIN,URIN NEGATIVE (NEGATIVE); *BLOOD, URINE 2+ (NEGATIVE); *CLARITY,URINE SLIGHTLY CLOUDY (CLEAR); *COLOR,URINE YELLOW (YELLOW); *KETONES,URINE NEGATIVE (NEGATIVE); *PROTEIN,URINE NEGATIVE (NEGATIVE); *UROBILINOGEN,URINE 0.2 E.U./dl (NORMAL); LEUKOCYTE ESTERASE ,URINE 2+ (NEGATIVE); NITRITE, URINE POSITIVE (NEGATIVE); UGLUCOSE NEGATIVE (NEGATIVE)
[2025-05-16 11:36] LABS: CREATININE 0.7 mg/dL (0.6-1.3); SODIUM SERUM 138 mmol/L (136-145); UREA NITROGEN, BLOOD 11 mg/dL (7-18)
[2025-05-16 12:01] LABS: SQUAMOUS EPITHELIAL CELL,UR FEW /HPF (NONE SEEN)
[2025-05-16] MEDS ORDERED: CEFTRIAXONE /D5W 50ML IVPB **ER PYXIS IV ONE (12:22)
[2025-05-16] MEDS ORDERED: GENTAMICIN SULFATE 20 MG/2 ML VIAL IV ONE (12:46)
[2025-05-16] MEDS: GENTAMICIN SULFATE 20 MG/2 ML VIAL IV ONE (13:01)
[2025-05-16] MEDS ORDERED: CEFD300C3 PO (13:25)
[2025-05-16 13:32] VITALS: BP 149/77
[2025-05-16 14:00] VITALS: BP 149/77; TEMP 97.9; O2SAT 98
== END 2025-05-16 14:01 | disposition home or self-care (01) ==
LOC: ER 10:15
DX: N39.0 Urinary tract infection, site not specified (principal); I11.9 Hypertensive heart disease without heart failure; R06.02 Shortness of breath; Z79.82 Long term (current) use of aspirin; Z87.440 Personal history of urinary (tract) infections; Z90.49 Acquired absence of other specified parts of digestive tract; Z98.890 Other specified postprocedural states
CPT/HCPCS: 99285; 96365; 71045; 96375; 80048; 81001; 83880; 83735; 85025; 87186; 87086; 87077; 84484 ×2; 36415; 93005; J1580; J0696; A4606; A4663